=== PATIENT | male | born 1945 | race Caucasian/White ===

== ENCOUNTER → 2018-07-18 | Outpatient (CLI) | payer OTHER ==
[~2018-07-18] MED LIST: AMLODIPINE-BEN1 EACH; ASPIRIN EC325 M1 PO; CENTRUM SILVER1 EAC1; CRESTOR10 MG; DULERA 100 MCG/13 GM; EFFIENT10 MG; HYDROCHLOROTHIA25 M1 PO; NIACIN 500 MG500 M1; NITROSTAT0.4 MG; PROAIR HFA8.5 GM; PROTONIX40 M2
== END ==
LOC: NUC 08:11
DX: I25.10 Atherosclerotic heart disease of native coronary artery without angina pectoris (principal); E78.5 Hyperlipidemia, unspecified; I10 Essential (primary) hypertension; Z95.5 Presence of coronary angioplasty implant and graft